=== PATIENT | female | born 1960 | race Caucasian/White ===

== ENCOUNTER 2023-06-22 18:00 | Emergency (ER) | payer BC ==
[2023-06-22] MEDS ORDERED: Lidocaine 1% 5 ML VIAL INJECT ONE (20:23)
== END 2023-06-22 21:43 | disposition home or self-care (01) ==
LOC: MW.ED 18:00
DX: S61.317A Laceration without foreign body of left little finger with damage to nail, initial encounter (principal); Z79.899 Other long term (current) drug therapy; W26.8XXA Contact with other sharp object(s), not elsewhere classified, initial encounter
CPT/HCPCS: 12001; 99282; 99283; J3490